=== PATIENT | male | born 1960 | race Two or more races ===

== ENCOUNTER → 2024-12-19 | Outpatient (CLI) | payer MEDICAID, SELFPAY ==
--- NOTE | 2024-12-19 08:00 | XR_ITS ---
Exam: MRI knee without contrast, left Date and time of exam: December 19, 2024 0818 hours Comparison March 18, 2024 INDICATIONS: Knee pain and swelling months Technique: Multiple axial, coronal, and sagittal sections on the knee have been obtained. T2-Weighted sagittal, fat-suppressed images, TR 3,500, TE 62, T2 weighted coronal fat-saturated images, TR 3,500, TE 62 Proton density sagittal sections, TR 1800, TE 31. T-1 weighted coronal images, TR 524, TE 13.0 Findings: Medial meniscus anterior horn is intact. Medial meniscus, body oblique linear tear communicating inferior articular surface. Posterior horn medial meniscus horizontal linear tear communicating inner margin. Lateral meniscus anterior horn replaced by isointense signal Lateral meniscus, body partially replaced by isointense signal Posterior horn lateral meniscus is intact Anterior cruciate ligament mild to moderate sprain Posterior cruciate ligament appears intact. Knee effusion is moderate. Quadriceps and patellar tendons appear intact. There is no evidence of tendinosis. Inflammatory change or fracture of Hoffa's fat pad is not seen. Medial patellar facet demonstrates mild thinning. Lateral patellar facet cartilage demonstrates mild thinning. Trochlear cartilage demonstrates mild thinning. Marrow signal adequate. Medial collateral ligament appears intact. No meniscocapsular separation is seen. Illiotibial band and fibular collateral ligament are intact. Biceps femoris tendons appear intact. Medial femoral condylar articular cartilage demonstrates moderate thinning. Lateral femoral condylar articular cartilage demonstratesmoderate thinning. Tibial plateau cartilage demonstrates moderate thinning. Impression: Medial and lateral meniscus tears Mild to moderate strain anterior cruciate ligament
== END | disposition home or self-care (01) ==
LOC: SMRI 07:45
PROVIDERS: Referring Provider Chiropractor; Visit Provider Chiropractor
DX: M23.322 Other meniscus derangements, posterior horn of medial meniscus, left knee (principal); S83.282A Other tear of lateral meniscus, current injury, left knee, initial encounter; S83.242A Other tear of medial meniscus, current injury, left knee, initial encounter; S89.82XA Other specified injuries of left lower leg, initial encounter; X58.XXXA Exposure to other specified factors, initial encounter
CPT/HCPCS: 73721

== ENCOUNTER 2025-02-23 09:13 | Outpatient (AMB) | payer MEDICAID, SELFPAY ==
[2025-02-23 09:30] VITALS: BP 143/84; PULSE 78; RESP 17; TEMP 36.9; O2SAT 97; BMI 24.0
--- NOTE | 2025-02-23 09:30 | PD.ORTHCLVIS ---
Vital signs 02/23/25 09:30 Height 1.6 m Height Method Stated Weight 61.717 kg Weight Measurement Method Standing Scale BMI 24.0 BP 143/84 H Blood Pressure Source Automatic Cuff Blood Pressure Location Right Upper Arm Position Sitting Respiration 17 Pulse 78 Pulse Source Monitor Temp 98.4 F Temp Source Temporal Artery Scan Pulse Oximetry (%) 97 Oxygen Delivery Method Room Air Med/Allergies Allergies & Medications Allergies No Known Allergies Allergy (Verified 02/23/25 09:31) Medication Reconciliation calcium-vitamin C-vit D2-min tablet tab PO 02/23/25 [History Confirmed 02/23/25] lisinopril 2.5 mg tablet 2.5 mg PO QDAY 02/23/25 [History Confirmed 02/23/25] simvastatin 20 mg tablet 20 mg PO QDAY 02/23/25 [History Confirmed 02/23/25] Exam Exam Patient is in no acute distress and is cooperative with the examination today. Breathing is nonlabored. In no respiratory distress. Bilateral extremities were evaluated and demonstrates sensation intact to light touch. Palpable pedal pulses are present. No significant edema is present. Bilateral hips were examined. The patient has no pain with log roll of the hips. Internal rotation to 30 degrees and external rotation to 30 degrees is painless. Negative FADIR. The left knee was examined. The left knee is in neutral alignment. Range of motion from 0-120 degrees. Knee is stable to varus and valgus as well as AP translation with <5mm. Patient has a negative McMurrays. There is no pain with patellofemoral compression and no crepitus noted. The knee is Tender to palpation medially The right knee was also examined. The right knee is in neutral alignment. Range of motion from 0-120 degrees. Knee is stable to varus and valgus as well as AP translation with <5mm. Patient has a negative McMurrays. There is no pain with patellofemoral compression and no crepitus noted. The knee is nontender to palpation diffusely. X-rays from 09/2023 demonstrates mild arthritis of the left knee. These are weightbearing. This is Over a-year-old Assessment and Plan Problem List (1) Arthritis of left knee: Status: Acute Plan: Patient is a 64-year-old male with left knee arthritis of mild to moderate severity. He also has meniscal tears based on the MRI. We discussed different treatment options depending on what the x-ray shows. We will likely do conservative treatment at this time. He cannot get a injection until his diabetes is more controlled Office Procedures GNS Level of Care Nursing/Assessment Patient Status: Initial/New Patient Nursing Assessment/Reassesment: Medication Reconciliation and Update PMH in EMR Coordination of Care: Complex Care and Chronic Disease 1-5, Consent,records obtained, informed consent, 1 Ins Authorization, Lab and Imaging orders and Results/Orders obtained Special Needs: Language special needs (MALDIVIAN ) New Patient Charge New Patient Point Assignment: [id number] New Patient Point Charge: LIFEGUARD Level 3 ([id number]) MA Intake Visit Data Collection New Patient or Established: Established Patient (seen at [facility] within 3 years) Reason for Visit:: LT KNEE PAIN Seen by Clinical Staff ONLY (RN/MA): No Control Room Helper Required: Yes PCP or OBGYN visit in last 3 months: Yes Hx Now: No Do You Feel Safe at Home: Yes Authorities Contacted: N/A Questionairres Past Medical History Past Medical History Have you ever been diagnosed with any of the following: Respiratory Problems Smoking: No Smoking Cessation Counseling: No Smoking Exposure: No Tobacco Use: No Subjective Visit Visit for: new patient and knee (LT KNEE ) Immunization / Flu Flu Vaccine in the Last 12 Months: No Flu Vaccine Exclusion Criteria: Refused by Patient History of Present Illness Chief complaint: Left knee pain Patient is a 64-year-old male with bilateral knee pain worse on the left. This been ongoing for several years. He reports the knee pain is not currently that bad. He has uncontrolled diabetes with a hemoglobin A1c of 10 at this time Personal History Red flag PMH: none Pain Pain level (0-10): 8 Pain duration: 2 YEARS Pain location: anterior Pain quality: sharp Pain timing: night and increases with activity Associated signs & symptoms: weakness Ambulatory data Ambulatory device: none Walking distance (minutes): 10 Treatments Number of previous injections: 0 Number of Physical Therapy sessions: 0 Improvement with NSAIDS: n/a Review of Systems Review of Systems: All systems negative unless otherwise noted in HPI.
--- NOTE | 2025-02-23 09:38 | XR_ITS ---
Examination: Bilateral knees 2 views Right lateral knee left lateral knee 2 views Bilateral axial knees single view TECHNIQUE: Bilateral AP knees standing single view, bilateral PA knees standing single view flexion Standing right lateral knee left lateral knee 2 views Bilateral axial knees single view total 5 views Exam date and time: February 23, 2025 1026 hours INDICATIONS: Bilateral knee pain one year. FINDINGS: Mild osteopenia. Mild bilateral tricompartment osteoarthritis, no significant joint narrowing No patellar dislocation IMPRESSION: Mild bilateral tricompartment osteoarthritis
== END 2025-02-23 09:42 | disposition home or self-care (01) ==
LOC: HODSRG 09:13
PROVIDERS: Supervising Provider Orthopaedic Surgery Adult Reconstructive Orthopaedic Surgery; Visit Provider Orthopaedic Surgery Adult Reconstructive Orthopaedic Surgery
DX: M17.0 Bilateral primary osteoarthritis of knee (principal); E11.9 Type 2 diabetes mellitus without complications; M25.562 Pain in left knee; M25.561 Pain in right knee
CPT/HCPCS: 73564; 99203; G0463

== ENCOUNTER 2025-03-09 10:25 | Outpatient (AMB) | payer MEDICAID, SELFPAY ==
[2025-03-09 10:35] VITALS: BP 151/83; PULSE 80; RESP 18; TEMP 36.4; O2SAT 97; BMI 24.1
--- NOTE | 2025-03-09 10:35 | ORTHONT_ITS ---
Vital signs 03/09/25 10:35 Height 1.6 m Height Method Stated Weight 61.745 kg Weight Measurement Method Standing Scale BMI 24.1 BP 151/83 H Blood Pressure Source Automatic Cuff Blood Pressure Location Right Upper Arm Position Sitting Respiration 18 Pulse 80 Pulse Source Monitor Temp 97.5 F Temp Source Temporal Artery Scan Pulse Oximetry (%) 97 Oxygen Delivery Method Room Air Med/Allergies Allergies & Medications Allergies No Known Allergies Allergy (Verified 03/09/25 10:41) Medication Reconciliation calcium-vitamin C-vit D2-min tablet tab PO 02/23/25 [History Confirmed 03/09/25] lisinopril 2.5 mg tablet 2.5 mg PO QDAY 02/23/25 [History Confirmed 03/09/25] simvastatin 20 mg tablet 20 mg PO QDAY 02/23/25 [History Confirmed 03/09/25] Exam Exam Patient is in no acute distress and is cooperative with the examination today. Breathing is nonlabored. In no respiratory distress. Bilateral extremities were evaluated and demonstrates sensation intact to light touch. Palpable pedal pulses are present. No significant edema is present. Bilateral hips were examined. The patient has no pain with log roll of the hips. Internal rotation to 30 degrees and external rotation to 30 degrees is painless. Negative FADIR. The left knee was examined. The left knee is in neutral alignment. Range of motion from 0-120 degrees. Knee is stable to varus and valgus as well as AP translation with <5mm. Patient has a negative McMurrays. There is no pain with patellofemoral compression and no crepitus noted. The knee is Tender to palpation medially The right knee was also examined. The right knee is in neutral alignment. Range of motion from 0-120 degrees. Knee is stable to varus and valgus as well as AP translation with <5mm. Patient has a negative McMurrays. There is no pain with patellofemoral compression and no crepitus noted. The knee is nontender to palpation diffusely. X-rays demonstrates mild arthritis of the left knee. Assessment and Plan Problem List (1) Arthritis of left knee: Status: Acute Plan: Patient is a 64-year-old male with left knee arthritis of mild to moderate severity. He also has meniscal tears based on the MRI. We will do conservative treatment as he as no pain at this time. We can do an injection if the pain gets worse. We have Given him a home exercise Program as well Office Procedures GNS Level of Care Nursing/Assessment Patient Status: Established Patient Nursing Assessment/Reassesment: Medication Reconciliation, Update PMH in EMR and Vital Signs Coordination of Care: Complex Care and Chronic Disease 1-5, Education Complex Pt/Fam, Consent,records obtained, informed consent, Results/Orders obtained and Staff clarify orders Special Needs: Language special needs Established Patient Charge Established Patient Point Assignment: 95 Established Patient Point Charge: EP Level 3 (80-115) MA Intake Visit Data Collection New Patient or Established: Established Patient (seen at [facility] within 3 years) Reason for Visit:: F/U XRAYS Seen by Clinical Staff ONLY (RN/MA): No Verbal consent obtained for Telemed visit?: No 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 PCP or OBGYN visit in last 3 months: Yes Hx Now: No Do You Feel Safe at Home: Yes Authorities Contacted: N/A Questionairres Past Medical History Past Medical History Have you ever been diagnosed with any of the following: Respiratory Problems Smoking: No Smoking Cessation Counseling: No Smoking Exposure: No Tobacco Use: No Subjective Visit Visit for: new patient and knee (LT KNEE ) Immunization / Flu Flu Vaccine in the Last 12 Months: No Flu Vaccine Exclusion Criteria: Refused by Patient History of Present Illness Chief complaint: Left knee pain Patient is a 64-year-old male with bilateral knee pain worse on the left. This been ongoing for several years. He reports the knee pain is not currently that bad. Hw went to see his PCP and told his diabetes is now controlled Personal History Red flag PMH: none Pain Pain level (0-10): 8 Pain duration: 2 YEARS Pain location: anterior Pain quality: sharp Pain timing: night and increases with activity Associated signs & symptoms: weakness Ambulatory data Ambulatory device: none Walking distance (minutes): 10 Treatments Number of previous injections: 0 Number of Physical Therapy sessions: 0 Improvement with NSAIDS: n/a Review of Systems Review of Systems: All systems negative unless otherwise noted in HPI.
== END 2025-03-09 10:43 | disposition home or self-care (01) ==
LOC: HODSRG 10:25
PROVIDERS: Supervising Provider Orthopaedic Surgery Adult Reconstructive Orthopaedic Surgery; Visit Provider Orthopaedic Surgery Adult Reconstructive Orthopaedic Surgery
DX: M17.12 Unilateral primary osteoarthritis, left knee (principal); M25.562 Pain in left knee; M25.561 Pain in right knee; E11.9 Type 2 diabetes mellitus without complications
CPT/HCPCS: 99213; G0463

== ENCOUNTER → 2025-04-05 | Outpatient (CLI) | payer MEDICAID, SELFPAY ==
--- NOTE | 2025-04-05 12:30 | XR_ITS ---
Examination: Abdomen sonogram, complete Date and time of exam: April 05, 2025 1304 hours. INDICATIONS: Left upper abdominal pain 10 years. Technique: Multiple real-time grayscale transabdominal sonographic images of the abdomen have been obtained. Findings: Contracted gallbladder Normal common bile duct 0.3 cm Pancreatic head 2.3 cm Mid and distal aorta visualized not enlarged Liver 14.8 cm fatty infiltration Normal hepatopedal portal venous flow Patent IVC Right kidney 11.5 cm renal cortex 1.5 cm Left kidney 11.1 cm cortex 2.0 cm Moderate renal parenchymal scar formation Spleen 10.0 cm IMPRESSION: Consider repeat gallbladder portion of this study with fasting Normal common bile duct Fatty infiltration throughout the liver Moderate bilateral renal parenchymal scar formation
== END | disposition home or self-care (01) ==
LOC: CDIM 12:38
PROVIDERS: PCP Physician Assistant; Referring Provider Physician Assistant; Visit Provider Physician Assistant
DX: K76.0 Fatty (change of) liver, not elsewhere classified (principal); N28.89 Other specified disorders of kidney and ureter
CPT/HCPCS: 76700